=== PATIENT | female | born 1985 | race Two or more races ===

== ENCOUNTER 2016-11-19 12:26 | Emergency (ER) | payer OTHER ==
[2016-11-19 12:33] VITALS: BP 106/58; PULSE 80; TEMP 98.1; BMI 31.7
[2016-11-19 13:25] LABS: URINE APPEARANCE SLCLOUDY; URINE BILIRUBIN NEGATIVE (NEGATIVE); URINE COLOR YELLOW; URINE GLUCOSE (UA) NEGATIVE (NEGATIVE); URINE KETONE NEGATIVE (NEGATIVE); URINE NITRITE NEGATIVE (NEGATIVE); URINE UROBILINOGEN NEGATIVE E.U./dl (0.2-1.0)
[2016-11-19 13:37] LABS: URINE BLOOD 3+ (NEGATIVE); URINE LEUK ESTERASE 1+ (NEGATIVE); URINE PROTEIN 2+ (NEGATIVE)
[2016-11-19 13:40] LABS: URINE MUCUS FEW; URINE RBC 270 /hpf (0-3); URINE WBC 65 /hpf (3-5)
--- NOTE | 2016-11-19 13:45 | PDOC ---
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) - Surgical History Neurologic Surgery: Yes (brain tumor removed) - Immunization History Immunization Up to Date: No - Psycho/Social/Smoking Cessation Hx Anxiety: No Suicidal Ideation: No Smoking History: Never smoked Have you smoked in the past 12 months: No Information on smoking cessation initiated: No Hx Alcohol Use: No Drug/Substance Use Hx: No Substance Use Type: None Abd/GI Specific PMHX - Complaint Specific PMHX Colitis: No Diverticulitis: No Gall Bladder Disease: No GERD: No Hepatitis: No Irritable Bowel Synd (IBS): No Pancreatitis: No GI Ulcer Disease: No Review of Systems - Review of Systems Constitutional: No: Chills, Fever ABD/GI: No: Nausea, Vomiting : Yes: Burning. No: Discharge, Frequency, Flank Pain, Hematuria *Physical Exam - Vital Signs Last Vital Signs Temp Pulse Resp BP Pulse Ox 98.1 F 80 20 106/58 96 11/19/16 12:31 11/19/16 12:31 11/19/16 12:31 11/19/16 12:31 11/19/16 12:31 - Physical Exam General Appearance: Yes: Appropriately Dressed. No: Apparent Distress HEENT: positive: Normal Voice Neck: positive: Supple Gastrointestinal/Abdominal: positive: Soft. negative: Tender Musculoskeletal: negative: CVA Tenderness Integumentary: positive: Dry, Warm Neurologic: positive: Fully Oriented, Alert, Normal Mood/Affect ED Treatment Course - ADDITIONAL ORDERS Additional order review: Laboratory Results 11/19/16 11/19/16 12:50 12:50 Urine Color Yellow Urine Appearance Slcloudy Urine pH 5.0 Ur Specific [place] 1.031 Urine Protein 2+ H Urine Glucose (UA) Negative Urine Ketones Negative Urine Blood 3+ H Urine Nitrite Negative Urine Bilirubin Negative Urine Urobilinogen Negative Ur Leukocyte Esterase 1+ H Urine HCG, Qual Negative Medical Decision Making - Medical Decision Making 11/19/16 13:43 31-year-old female, no significant history, here with dysuria since last night. No hematuria, urinary frequency, flank pain, nausea, vomiting, fever or chills. Patient states current symptoms similar to past UTI. Patient well- appearing and stable with + LE, blood and proteins on UA. Will tx (prior ucx reviewed). Ucx from today pending *DC/Admit/Observation/Transfer Diagnosis at time of Disposition: Urinary tract infection Qualifiers: Urinary tract infection type: acute cystitis Hematuria presence: without hematuria Qualified Code(s): N30.00 - Acute cystitis without hematuria - Discharge Dispostion Disposition: HOME Condition at time of disposition: Good - Prescriptions Prescriptions: Nitrofurantoin Monohyd/M-Cryst [Macrobid -] 100 mg PO BID #14 capsule - Patient Instructions Printed Discharge Instructions: Urinary Tract Infection Print Language: LAO
== END 2016-11-19 13:52 | disposition home or self-care (01) ==
LOC: JERFT 12:26
DX: N30.01 Acute cystitis with hematuria (principal)
CPT/HCPCS: 81003; 81015; 84703; 87086; 99281-25

== ENCOUNTER 2017-02-27 09:22 | Emergency (ER) | payer OTHER ==
[2017-02-27 09:27] VITALS: BP 116/55; PULSE 67; TEMP 98; BMI 27.4
[2017-02-27 09:54] LABS: URINE APPEARANCE CLOUDY; URINE BILIRUBIN NEGATIVE (NEGATIVE); URINE COLOR LTYELLOW; URINE GLUCOSE (UA) NEGATIVE (NEGATIVE); URINE KETONE NEGATIVE (NEGATIVE); URINE NITRITE NEGATIVE (NEGATIVE); URINE UROBILINOGEN NEGATIVE E.U./dl (0.2-1.0)
[2017-02-27 10:09] LABS: URINE BLOOD 1+ (NEGATIVE); URINE PROTEIN 1+ (NEGATIVE)
[2017-02-27 10:10] LABS: URINE LEUK ESTERASE 3+ (NEGATIVE)
--- NOTE | 2017-02-27 10:23 | PDOC ---
History of Present Illness - General Chief Complaint: Urinary Problem Stated Complaint: URINARY PROBLEM Time Seen by Provider: 02/27/17 09:32 History Source: Patient Exam Limitations: No Limitations - History of Present Illness Travel History: No Initial Comments: 02/27/17 10:21 32-year-old female presents to the ED with complaints of urinary frequency and burning without fever, chills, abdominal pain or back pain. Patient states has had UTIs before and feels similar symptoms. Timing/Duration: reports: intermittent Quality: reports: mild Aggravating Factors: improves with: Voiding Alleviating Factors: improves with: None Past History - Past Medical History Allergies/Adverse Reactions: Allergies Allergy/AdvReac Type Severity Reaction Status Date / Time No Known Allergies Allergy Verified 02/27/17 09:24 Cancer: Yes (hx) Seizures: Yes (related to tumor) - Surgical History Neurologic Surgery: Yes (brain tumor removed) - Immunization History Immunization Up to Date: No - Psycho/Social/Smoking Cessation Hx Anxiety: No Suicidal Ideation: No Smoking History: Never smoked Have you smoked in the past 12 months: No Information on smoking cessation initiated: No Hx Alcohol Use: No Drug/Substance Use Hx: No Substance Use Type: None Patient Lives Alone: No Lives with/in: spouse/SO Abd/GI Specific PMHX - Complaint Specific PMHX Colitis: No Diverticulitis: No Gall Bladder Disease: No GERD: No Hepatitis: No Irritable Bowel Synd (IBS): No Pancreatitis: No GI Ulcer Disease: No Review of Systems - Review of Systems Able to Perform ROS?: Yes Constitutional: No: Symptoms Reported HEENTM: No: Symptoms Reported Cardiac (ROS): No: Symptoms Reported ABD/GI: No: Symptoms Reported : Yes: Burning, Frequency Musculoskeletal: No: Symptoms Reported Integumentary: No: Symptoms Reported Neurological: No: Symptoms reported Endocrine: No: Symptoms Reported Hematologic/Lymphatic: No: Symptoms Reported *Physical Exam - Vital Signs Last Vital Signs Temp Pulse Resp BP Pulse Ox 98 F 67 18 116/55 100 02/27/17 09:24 02/27/17 09:24 02/27/17 09:24 02/27/17 09:24 02/27/17 09:24 - Physical Exam General Appearance: Yes: Nourished, Appropriately Dressed. No: Apparent Distress Respiratory/Chest: positive: Lungs Clear, Normal Breath Sounds. negative: Respiratory Distress, Accessory Muscle Use Cardiovascular: positive: Regular Rhythm, Regular Rate. negative: Murmur Gastrointestinal/Abdominal: positive: Soft. negative: Tenderness Musculoskeletal: negative: CVA Tenderness Integumentary: positive: Normal Color Neurologic: positive: Motor Strength 5/5 (ambulatory) ED Treatment Course - ADDITIONAL ORDERS Additional order review: Laboratory Results 02/27/17 09:43 Urine Color Ltyellow Urine Appearance Cloudy Urine pH 6.0 Ur Specific [place] 1.024 Urine Protein 1+ H Urine Glucose (UA) Negative Urine Ketones Negative Urine Blood 1+ H Urine Nitrite Negative Urine Bilirubin Negative Urine Urobilinogen Negative Ur Leukocyte Esterase 3+ H D Urine HCG, Qual Negative Medical Decision Making - Medical Decision Making 02/27/17 09:27 Patient with complaints of urinary frequency and dysuria for the past 2 days without fever, chills abdominal pain or nausea. Patient on exam had no abdominal tenderness. Patient ordered for urinalysis urine culture and urine . 02/27/17 10:28 Previous urine culture from 2014 showed positive for Staphylococcus saprophyticus. Patient be discharged home with Macrobid Laboratory Tests 02/27/17 09:43 Urine Protein 1+ H Urine Blood 1+ H Urine Nitrite Negative Ur Leukocyte Esterase 3+ H D Urine HCG, Qual Negative *DC/Admit/Observation/Transfer Diagnosis at time of Disposition: Urinary tract infection Qualifiers: Urinary tract infection type: acute cystitis Hematuria presence: without hematuria Qualified Code(s): N30.00 - Acute cystitis without hematuria - Discharge Dispostion Disposition: HOME Condition at time of disposition: Good - Patient Instructions Printed Discharge Instructions: DI for Urinary Tract Infection (UTI) Additional Instructions: Please take medication as prescribed until completed. Please drink plenty of water. follow-up with your PCP and/or return to ED if symptoms worsen.
[2017-02-27 10:34] LABS: URINE MUCUS RARE; URINE RBC 15 /hpf (0-3); URINE WBC 221 /hpf (3-5)
== END 2017-02-27 10:39 | disposition home or self-care (01) ==
LOC: JERFT 09:22
DX: N30.00 Acute cystitis without hematuria (principal)
CPT/HCPCS: 81003; 81015; 84703; 87086; 87186; 99281-25

== ENCOUNTER 2018-06-28 12:45 | Emergency (ER) | payer MEDICARE, OTHER ==
[2018-06-28 12:55] VITALS: BP 126/62; PULSE 82; TEMP 98.2; BMI 22.6
[2018-06-28 13:27] LABS: HCG,QUALITATIVE URINE Negative
[2018-06-28 13:31] LABS: URINE APPEARANCE CLOUDY; URINE BILIRUBIN NEGATIVE (<2.0 mg/dL); URINE COLOR YELLOW; URINE GLUCOSE (UA) NEGATIVE (NEGATIVE); URINE KETONE NEGATIVE (NEGATIVE); URINE NITRITE NEGATIVE (NEGATIVE); URINE PROTEIN NEGATIVE (NEGATIVE)
[2018-06-28 13:35] LABS: URINE LEUK ESTERASE 3+ (NEGATIVE)
[2018-06-28 13:51] LABS: EPI CELLS RARE /HPF (FEW); URINE MUCUS RARE
--- NOTE | 2018-06-28 13:56 | PDOC ---
History of Present Illness - General Chief Complaint: Urinary Problem Stated Complaint: UTI - History of Present Illness Initial Comments: 33 -year-old female presents for evaluation of dysuria without any other associated symptoms times one day. She has no comorbidities and NO KNOWN DRUG ALLERGIES 06/28/18 13:54 Past History - Past Medical History Allergies/Adverse Reactions: Allergies Allergy/AdvReac Type Severity Reaction Status Date / Time No Known Allergies Allergy Verified 06/28/18 12:49 Home Medications: Ambulatory Orders Sulfamethoxazole/Trimethoprim [Bactrim Ds -] 1 tab PO BID #14 tablet 06/28/18 Cancer: Yes (hx) Seizures: Yes (related to tumor) - Surgical History Neurologic Surgery: Yes (brain tumor removed) - Immunization History Immunization Up to Date: No - Suicide/Smoking/Psychosocial Hx Smoking History: Never smoked Have you smoked in the past 12 months: No Information on smoking cessation initiated: No Hx Alcohol Use: No Drug/Substance Use Hx: No Substance Use Type: None Review of Systems - Review of Systems : Yes: See HPI, Burning, Dysuria All Other Systems: Reviewed and Negative *Physical Exam - Vital Signs Last Vital Signs Temp Pulse Resp BP Pulse Ox 98.2 F 82 16 126/62 100 06/28/18 12:48 06/28/18 12:48 06/28/18 12:48 06/28/18 12:48 06/28/18 12:48 - Physical Exam Comments: HEAD: NC/AT EYES: Conjuntiva clear MS: Full ROM in all joints without edema NEUROLOGIC: No gross sensory or motor deficits, NVID SKIN: Normal color and temperature no lesions or rashes 06/28/18 13:55 ED Treatment Course - ADDITIONAL ORDERS Additional order review: Laboratory Results 06/28/18 13:15 Urine Color Yellow Urine Appearance Cloudy Urine pH 5.0 Ur Specific [place] 1.024 Urine Protein Negative Urine Glucose (UA) Negative Urine Ketones Negative Urine Blood 1+ H Urine Nitrite Negative Urine Bilirubin Negative Urine Urobilinogen 2.0 H Ur Leukocyte Esterase 3+ H Urine WBC (Auto) 344 Urine RBC (Auto) 32 Ur Epithelial Cells Rare Urine Mucus Rare Urine HCG, Qual Negative *DC/Admit/Observation/Transfer Diagnosis at time of Disposition: UTI (urinary tract infection) - Discharge Dispostion Disposition: HOME Condition at time of disposition: Stable Decision to Admit order: No - Prescriptions Prescriptions: Sulfamethoxazole/Trimethoprim [Bactrim Ds -] 1 tab PO BID #14 tablet - Referrals Referrals: Meng Alcantara [Non Staff, Medical] - - Patient Instructions Printed Discharge Instructions: Urinary Tract Infection Additional Instructions: Return to the emergency room should symptoms worsen or go unresolved. Follow-up with primary care physician once 2 days for further evaluation and treatment options. Take all the antibiotics as directed. - Post Discharge Activity
== END 2018-06-28 14:15 | disposition home or self-care (01) ==
LOC: JERFT 12:45
DX: N39.0 Urinary tract infection, site not specified (principal)
CPT/HCPCS: 81003; 81015; 84703; 87086; 99281-25